=== PATIENT | female | born 1960 | race American Indian/Alaskan Native ===

== ENCOUNTER 2016-06-07 08:42 | Outpatient (CLI) | payer OTHER ==
--- NOTE | 2016-06-07 14:16 | Cat Scan Report ---
CT chest with contrast: Transverse images were obtained from the thoracic inlet to the upper abdomen with coronal and sagittal 2-D reformatted images. There is a slightly heterogeneous thyroid gland with no mass identified. There is no axillary, hilar, or mediastinal adenopathy identified. The central airways are patent. No obvious filling defects in the pulmonary vessels and cardiac chambers. The thoracic aorta is normal in size and contour. There is a non-reduced hiatus hernia. There are no pulmonary nodules nor infiltrates. The pleural surfaces are smooth. The lungs appear to be well aerated. Sections of the upper abdomen demonstrate a couple of small right hepatic hypodensities consistent with cysts. There is an 11 mm gallstone. There is mild thoracic spondylosis. Impressions: 1. No cardiopulmonary pathology identified. 2. Hiatus hernia. 3. Gallstone.
== END 2016-06-07 08:43 | disposition home or self-care (01) ==
LOC: SPVIMAG 08:42
PROVIDERS: ATTEND Internal Medicine
DX: K80.20 Calculus of gallbladder without cholecystitis without obstruction (principal); R07.9 Chest pain, unspecified; K44.9 Diaphragmatic hernia without obstruction or gangrene; M47.894 Other spondylosis, thoracic region
CPT/HCPCS: 71260; 82962; Q9967